=== PATIENT | male | born 1985 | race Caucasian/White ===

== ENCOUNTER 2018-06-20 13:46 | Emergency (ER) | payer OTHER ==
[2018-06-20 13:51] VITALS: TEMP 97.7
--- NOTE | 2018-06-20 14:42 | ED ---
General Adult HPI - General Chief complaint: Overdose Stated complaint: overdose Time Seen by Provider: 06/20/18 13:52 Source: patient, EMS, RN notes reviewed Mode of arrival: EMS Limitations: no limitations - History of Present Illness Initial comments: Patient is a pleasant 32-year-old male presenting to the emergency department following accidental overdose. Patient states he snorted heroin that he believes may have had some fentanyl and it. Patient denies any attempt of self- harm. Patient denies suicidal ideation. Patient does do this frequently. Patient did not inject heroin. Patient denies any injury. Patient states he feels fine at this point and is comfortable with discharge home. - Related Data Home Medications Medication Instructions Recorded Confirmed No Known Home Medications 06/20/18 06/20/18 Allergies Allergy/AdvReac Type Severity Reaction Status Date / Time No Known Allergies Allergy Verified 06/20/18 14:12 Review of Systems ROS Statement: Those systems with pertinent positive or pertinent negative responses have been documented in the HPI. ROS Other: All systems not noted in ROS Statement are negative. Constitutional: Denies: fever Eyes: Denies: eye pain ENT: Denies: ear pain Respiratory: Denies: cough Cardiovascular: Denies: chest pain Endocrine: Denies: fatigue Gastrointestinal: Denies: abdominal pain Genitourinary: Denies: dysuria Musculoskeletal: Denies: back pain Skin: Denies: rash Neurological: Denies: weakness Past Medical History Past Medical History: No Reported History History of Any Multi-Drug Resistant Organisms: None Reported Past Surgical History: No Surgical Hx Reported Past Psychological History: No Psychological Hx Reported Smoking Status: Current every day smoker Past Alcohol Use History: Occasional Past Drug Use History: Opiates General Exam Limitations: no limitations General appearance: alert, in no apparent distress Head exam: Present: atraumatic Eye exam: Present: normal appearance, PERRL, EOMI. Absent: nystagmus ENT exam: Present: normal oropharynx Neck exam: Present: normal inspection. Absent: tenderness, meningismus Respiratory exam: Present: normal lung sounds bilaterally Cardiovascular Exam: Present: regular rate, normal rhythm GI/Abdominal exam: Present: soft. Absent: tenderness Extremities exam: Present: normal inspection, full ROM Neurological exam: Present: alert, oriented X3, CN II-XII intact. Absent: motor sensory deficit Psychiatric exam: Present: normal affect, normal mood Skin exam: Present: normal color Course Vital Signs 06/20/18 13:47 Temperature 97.7 F Pulse Rate 82 Respiratory 18 Rate Blood Pressure 114/86 O2 Sat by Pulse 98 Oximetry - Reevaluation(s) Reevaluation #1: 06/20/18 15:14 Patient reevaluated and alert and appropriate and requesting discharge. Patient has been observed for more than one hour following Narcan. Patient is counseled on discontinuing narcotics. Disposition Clinical Impression: Overdose Disposition: HOME SELF-CARE Condition: Stable Instructions: Adult Overdose (ED), Narcotic Use Disorder (ED) Additional Instructions: Discontinue heroin use. Please provide list for narcotic follow-up. Please follow-up with primary care physician in the next day or 2 for recheck. Is patient prescribed a controlled substance at d/c from ED?: No Referrals: Syeda Oh MD [STAFF PHYSICIAN] - 1-2 days Time of Disposition: 15:19
[2018-06-20 15:36] VITALS: BP 115/74; PULSE 80; RESP 16
== END 2018-06-20 15:36 | disposition home or self-care (01) ==
LOC: EC 13:46
DX: T40.1X1A Poisoning by heroin, accidental (unintentional), initial encounter (principal); F17.200 Nicotine dependence, unspecified, uncomplicated
CPT/HCPCS: 99284

== ENCOUNTER 2019-07-04 21:20 | Emergency (ER) | payer OTHER ==
[2019-07-04 21:30] VITALS: RESP 18
[2019-07-04] MEDS ORDERED: ONDANSETRON 4 MG/2 ML VIAL IVP STA (21:42)
[2019-07-04] MEDS ORDERED: SODIUM CHLORIDE 0.9% 1,000 ML IV STA (21:42)
[2019-07-04] MEDS ORDERED: LORazepam 2 MG/ML INJ IV STA (21:51)
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
[2019-07-04] MEDS ORDERED: LORazepam 2 MG/ML INJ IM STA (22:07)
[2019-07-04 22:10] LABS: Basophils # (A) 0.2 k/uL (0-0.2); Basophils % (A) 3 %; Eosinophils # (A) 0.2 k/uL (0-0.7); Eosinophils % (A) 2 %; HCT 51.4 % (39.0-53.0); HGB 17.4 gm/dL (13.0-17.5); Lymphocytes % (A) 23 %; MCH 31.1 pg (25.0-35.0); MCHC 33.9 g/dL (31.0-37.0); MCV 91.7 fL (80.0-100.0); Mean Platelet Volume 7.7; Monocytes # (A) 0.6 k/uL (0-1.0); Monocytes % (A) 7 %; Neutrophils # (A) 5.5 k/uL (1.3-7.7); Neutrophils % (A) 63 %; Platelet Count 195 k/uL (150-450); RDW 12.4 % (11.5-15.5); WBC 8.7 k/uL (3.8-10.6)
[2019-07-04 22:21] LABS: ALT 21 U/L (4-49); AST 43 U/L (17-59); African American GFR (CKD) 79 (>60 ml/min/1.73 sqM); Albumin 5.4 g/dL (3.5-5.0); Alcohol <10 mg/dL; Alkaline Phosphatase 85 U/L (38-126); Anion Gap 19 mmol/L; Blood Urea Nitrogen 23 mg/dL (9-20); Calcium 10.2 mg/dL (8.4-10.2); Carbon Dioxide 22 mmol/L (22-30); Chloride 101 mmol/L (98-107); Glucose 89 mg/dL (74-99); Non-African American GFR(CKD) 68 (>60 ml/min/1.73 sqM); Sodium 142 mmol/L (137-145); Total Bilirubin 1.3 mg/dL (0.2-1.3); Total Protein 9.5 g/dL (6.3-8.2)
[2019-07-05 05:33] LABS: Amphetamine Screen,Urine Detected (NotDetected); Barbiturate Screen,Urine Not Detected (NotDetected); Benzodiazepines Screen,Urine Detected (NotDetected); Cocaine Screen,Urine Not Detected (NotDetected); Methadone Screen, Urine Not Detected (NotDetected); Opiate Screen,Urine Not Detected (NotDetected); Oxycodone Screen, Urine Not Detected (NotDetected); Phencyclidine Screen,Urine Not Detected (NotDetected); Tricyclic Antidepressant,Urine Not Detected (NotDetected); Urn Cannabinoid Scrn Not Detected (NotDetected)
[2019-07-05 07:43] VITALS: TEMP 98
[2019-07-05 09:12] VITALS: BP 120/64; PULSE 86
== END 2019-07-05 09:00 ==
LOC: EC 21:20
DX: F31.5 Bipolar disorder, current episode depressed, severe, with psychotic features (principal); F19.10 Other psychoactive substance abuse, uncomplicated; R45.851 Suicidal ideations; R45.1 Restlessness and agitation; F17.200 Nicotine dependence, unspecified, uncomplicated; Z53.8 Procedure and treatment not carried out for other reasons
CPT/HCPCS: 36415; 80053; 85025; 80306; 99285; 96372; G0480; J2060; 80320

== ENCOUNTER 2019-12-05 13:19 | Emergency (ER) | payer OTHER ==
[2019-12-05] MEDS ORDERED: TRIAMCINOLONE 0.1% CREAM 80 GM TUBE TOPICAL STA (13:26)
[2019-12-05 13:30] VITALS: BP 137/89; PULSE 90; RESP 16; TEMP 98.4
--- NOTE | 2019-12-05 13:30 | ED ---
General Adult HPI - General Chief complaint: Skin/Abscess/Foreign Body Stated complaint: poison ayse Time Seen by Provider: 12/05/19 13:21 Source: patient, EMS, RN notes reviewed Mode of arrival: EMS Limitations: no limitations - History of Present Illness Initial comments: 34-year-old male present emergency from via EMS for evaluation of a rash. Patient states that he has scratches and poison ayse from going to the [place]. He was reports that he is homeless has been walking and is looking for a place to stay and get something to eat. Patient denies any suicidal or homicidal. Patient denies any other physical complaints denies feeling short breath, dizzy lightheaded. Patient does not take any current medications. He states his rash is itchy. Denies any difficulty breathing no chest pain. - Related Data Home Medications Medication Instructions Recorded Confirmed No Known Home Medications 06/20/18 07/04/19 Allergies Allergy/AdvReac Type Severity Reaction Status Date / Time No Known Allergies Allergy Verified 12/05/19 13:27 Review of Systems ROS Statement: Those systems with pertinent positive or pertinent negative responses have been documented in the HPI. ROS Other: All systems not noted in ROS Statement are negative. Past Medical History Past Medical History: No Reported History History of Any Multi-Drug Resistant Organisms: None Reported Past Surgical History: No Surgical Hx Reported Past Psychological History: No Psychological Hx Reported Smoking Status: Current every day smoker Past Alcohol Use History: Occasional Past Drug Use History: Heroin, IV Drug Use, Methamphetamine General Exam Limitations: no limitations General appearance: alert, in no apparent distress Head exam: Present: atraumatic, normocephalic, normal inspection Eye exam: Present: normal appearance, PERRL, EOMI. Absent: scleral icterus, conjunctival injection, periorbital swelling ENT exam: Present: normal exam, normal oropharynx, mucous membranes moist Neck exam: Present: normal inspection, full ROM. Absent: tenderness, meningismus, lymphadenopathy Respiratory exam: Present: normal lung sounds bilaterally. Absent: respiratory distress, wheezes, rales, rhonchi, stridor Cardiovascular Exam: Present: regular rate, normal rhythm, normal heart sounds. Absent: systolic murmur, diastolic murmur, rubs, gallop, clicks GI/Abdominal exam: Present: soft, normal bowel sounds. Absent: distended, tenderness, guarding, rebound, rigid Neurological exam: Present: alert, oriented X3, CN II-XII intact Psychiatric exam: Present: normal affect, normal mood Skin exam: Present: warm, dry, intact, normal color, rash (There is some slight papular vesicular rash in the legs there are multiple excoriations and abrasions to the extremities.) Medical Decision Making - Medical Decision Making 34-year-old male presented for rash. Patient has some mild poison ayse, dermatitis or rash. Patient provided steroid cream. Patient is otherwise no distress. Patient did request something being drinking which was provided he is not suicidal or homicidal. Patient will be discharged in stable condition. Disposition Clinical Impression: Contact dermatitis Disposition: HOME SELF-CARE Condition: Stable Instructions (If sedation given, give patient instructions): Poison Ayse (ED) Additional Instructions: Please return to the Emergency Department if symptoms worsen or any other concerns. Is patient prescribed a controlled substance at d/c from ED?: No Referrals: None,Stated [Primary Care Provider] - 1-2 days Time of Disposition: 13:30
== END 2019-12-05 14:07 | disposition home or self-care (01) ==
LOC: EC 13:19
DX: L23.7 Allergic contact dermatitis due to plants, except food (principal); F17.200 Nicotine dependence, unspecified, uncomplicated; Z59.0 Homelessness
CPT/HCPCS: 99283